=== PATIENT | male | born 1965 | race Caucasian/White ===

== ENCOUNTER 2023-02-16 21:35 | Emergency (ER) | payer BC ==
--- NOTE | 2023-02-16 21:53 | ERPHSYRPT ---
- History of Present Illness Time Seen by Provider: 02/16/23 21:44 Source: patient Exam Limitations: no limitations Physician History: For the past 2 days pt has had swelling of the right lower leg, ankle and foot; today chills and redness of the right lower leg and foot. Pt denies chest pain, shortness of air, abdominal pain, vomiting. Allergies/Adverse Reactions: No Known Drug Allergies Allergy (Unverified 02/16/23 21:56) Home Medications: Allopurinol 300 mg [Zyloprim 300 mg] 1 tab PO DAILY 02/16/23 [History] Gabapentin 600 mg PO TID 02/16/23 [History] Glipizide/Metformin HCl [Glipizide-Metformin 5-500 mg] 1 tab PO BID 02/16/23 [History] Tadalafil [Cialis] 20 mg PO DAILY 02/16/23 [History] - Review of Systems Constitutional: Chills, No Fever Respiratory: No Dyspnea Cardiac: No Chest Pain Abdominal/Gastrointestinal: No Abdominal Pain Musculoskeletal: Joint Swelling (right ankle) Skin: Cellulitis (right lower leg, ankle & foot) Neurological: No Headache - Nursing Vital Signs Nursing Vital Signs: Initial Vital Signs Temperature 99.3 F 02/16/23 21:42 Pulse Rate 95 H 02/16/23 21:42 Respiratory Rate 16 02/16/23 21:42 Blood Pressure 183/109 02/16/23 21:42 O2 Sat by Pulse Oximetry 95 02/16/23 21:42 Pain Scale Pain Intensity 2 - Physical Exam General Appearance: alert Eyes, Ears, Nose, Throat Exam: TMs normal, pharynx normal, moist mucous membranes Neck Exam: normal inspection Cardiovascular/Respiratory Exam: normal breath sounds, heart sounds normal Gastrointestinal/Abdominal Exam: soft (B.S. normal) Hips Exam: bilateral: normal range of motion Legs Exam: right leg: soft tissue tenderness (calf), swelling (right lower leg), other (erythema of right lower leg), bilateral leg: normal range of motion Knees Exam: bilateral knee: normal range of motion Ankle Exam: right ankle: swelling, other (erythema of right ankle), bilateral ankle: normal range of motion Foot Exam: right foot: swelling, other (erythema of right foot), bilateral foot: normal range of motion Neuro/Tendon Exam: normal sensation, normal motor functions Mental Status Exam: alert, cooperative Skin Exam: other (warmth, erythema and edema of right lower leg, ankle & foot) - Radiology Ultrasound Exam Right Venous Lower Extremity Ultrasound: Other (Ultrasound teck report: no DVT of right lower extremity) Ordered Tests: Active Orders 24 hr Category Date Time Status IV Insertion STAT Care 02/16/23 21:53 Active VENOUS UNILAT/LIMITED EXTREMIT [US] Stat Exams 02/16/23 21:51 Taken BMP Stat Lab 02/16/23 22:35 Completed CBC W DIFF Stat Lab 02/16/23 22:35 Completed Medication Summary Generic Name Dose Route Start Last Admin Trade Name Freq PRN Reason Stop Dose Admin Clindamycin HCl 300 mg 02/16/23 22:53 Clindamycin Hcl 150 Mg Capsule PO 02/16/23 22:54 STAT ONE Discontinued Medications Generic Name Dose Route Start Last Admin Trade Name Freq PRN Reason Stop Dose Admin Clindamycin HCl/Dextrose 900 mg in 50 mls @ 100 mls/hr 02/16/23 21:54 02/16/23 22:25 Clindamycin-D5w 900 Mg/50 Ml IV 02/16/23 22:23 100 mls/hr STAT STA 100 mls/hr Administration Clindamycin HCl/Dextrose Confirm 02/16/23 22:17 Clindamycin-D5w 900 Mg/50 Ml Administered 02/16/23 22:18 Dose 900 mg in 50 mls @ ud IV .K-MED ONE Lab/Rad Data: Laboratory Result Diagrams 02/16/23 22:35 02/16/23 22:35 Laboratory Results 02/16/23 02/16/23 Range/Units 22:35 22:35 WBC 8.6 (4.0-10.5) x10^3/uL RBC 5.35 (4.1-5.6) x10^6/uL Hgb 15.4 (12.5-18.0) g/dL Hct 46.5 (42-50) % MCV 86.9 (78-100) fL MCH 28.8 (26-32) pg MCHC 33.1 (32-36) g/dL RDW 12.0 (11.5-14.0) % Plt Count 143 L (150-450) x10^3/uL MPV 10.1 (7.5-11.0) fL Gran % 73.2 H (36.0-66.0) % Immature Gran % (Auto) 0.4 (0.00-0.4) % Nucleat RBC Rel Count 0.0 (0.00-0.1) % Eos # (Auto) 0.02 (0-0.5) x10^3/uL Immature Gran # (Auto) 0.03 (0.00-0.03) x10^3u/L Absolute Lymphs (auto) 1.58 (1.0-4.6) x10^3/uL Absolute Monos (auto) 0.65 (0.0-1.3) x10^3/uL Absolute Nucleated RBC 0.00 (0.00-0.01) x10^3u/L Lymphocytes % 18.4 L (24.0-44.0) % Monocytes % 7.6 (0.0-12.0) % Eosinophils % 0.2 (0.00-5.0) % Basophils % 0.2 (0.0-0.4) % Absolute Granulocytes 6.27 (1.4-6.9) x10^3/uL Basophils # 0.02 (0-0.4) x10^3/uL Sodium 130 L (137-145) mmol/L Potassium 3.9 (3.5-5.1) mmol/L Chloride 92 L (98-107) mmol/L Carbon Dioxide 27 (22-30) mmol/L Anion Gap 14.9 (5-15) MEQ/L BUN 10 (9-20) mg/dL Creatinine 0.70 (0.66-1.25) mg/dL Estimated GFR 108.8 ML/MIN Glucose 320 H (74-106) mg/dL Calcium 9.1 (8.4-10.2) mg/dL - Progress Progress: unchanged Counseled pt/family regarding: lab results, diagnosis Medical Desision Making - Diagnostic Testing Diagnostic test were ordered, analyzed, and reviewed by me: Yes - Departure Departure Disposition: Home Clinical Impression: Cellulitis of right leg, ankle & foot Condition: Stable Critical Care Time: No Referrals: WINDY MARIEE MD [Primary Care Provider] - Follow up/PCP as directed Instructions: Cellulitis (Skin Infection), Adult (DC) Additional Instructions: Elevate right leg 12 inches above heart level for the next 2 days. Follow up with private doctor tomorrow. Forms: Work/School Release Form Prescriptions: clindamycin HCL [Clindamycin HCl] 300 mg PO Q6H #40 cap
[2023-02-16] MEDS ORDERED: CLINDAMYCIN-D5W 900 MG/50 ML*** 900 MG/50 ML BAG IV STA (21:54)
[2023-02-16 21:59] VITALS: TEMP 99.3
[2023-02-16] MEDS ORDERED: CLINDAMYCIN-D5W 900 MG/50 ML*** 900 MG/50 ML BAG IV ONE (22:17)
[2023-02-16 22:40] LABS: Absolute Neutrophil Ct (ANC) 6.27 x10^3/uL (1.4-6.9); BASOPHIL % 0.2 % (0.0-0.4); Basophil (Absolute #) 0.02 x10^3/uL (0-0.4); Eosinophil % 0.2 % (0.00-5.0); Eosinophil (Absolute #) 0.02 x10^3/uL (0-0.5); Hematocrit 46.5 % (42-50); Hemoglobin 15.4 g/dL (12.5-18.0); IMMATURE GRAN # 0.03 x10^3u/L (0.00-0.03); IMMATURE GRAN % 0.4 % (0.00-0.4); Lymphocyte (Absolute #) 1.58 x10^3/uL (1.0-4.6); Lymphocytes % 18.4 % (24.0-44.0); Mean Cell Volume 86.9 fL (78-100); Mean Corpuscular Hemoglobin 28.8 pg (26-32); Mean Corpuscular Hgb Concent. 33.1 g/dL (32-36); Mean Platelet Volume 10.1 fL (7.5-11.0); Monocyte (Absolute #) 0.65 x10^3/uL (0.0-1.3); Monocytes % 7.6 % (0.0-12.0); Neutrophil % 73.2 % (36.0-66.0); Platelet Count 143 x10^3/uL (150-450); Red Blood Count 5.35 x10^6/uL (4.1-5.6); White Blood Count 8.6 x10^3/uL (4.0-10.5)
[2023-02-16] MEDS ORDERED: CLEOCIN 150 MG CAPSULE PO ONE (22:53)
[2023-02-16 22:54] LABS: ANION GAP 14.9 MEQ/L (5-15); Calcium 9.1 mg/dL (8.4-10.2); Creatinine 1 0.7 mg/dL (0.66-1.25); EST GLOMERULAR FILTRATION RATE 108.8 ML/MIN; Potassium 3.9 mmol/L (3.5-5.1)
[2023-02-16] MEDS ORDERED: CLEOCIN 150 MG CAPSULE ONE (22:56)
[2023-02-16 23:02] VITALS: BP 137/89; PULSE 88; RESP 18; O2SAT 97
--- NOTE | 2023-02-17 08:56 | XRAY ---
Indication: Right leg pain and swelling. Two-dimensional sonogram and color Doppler imaging of the major venous vessels of the right leg performed. Comparison: None No thrombus seen in the examined deep venous vessels of the right leg including greater saphenous vein. Veins demonstrate normal compressibility. Venous waveforms are normal with and without augmentation. Right groin demonstrate a few incidental prominent lymph nodes, largest 1 x 2 cm presumed reactive. Impression: Right leg negative for DVT. Incidental prominent right inguinal lymph nodes presumed reactive. Comment: Preliminary report was given.
== END 2023-02-16 23:07 | disposition home or self-care (01) ==
LOC: ED 21:35
DX: L03.115 Cellulitis of right lower limb (principal); Z79.84 Long term (current) use of oral hypoglycemic drugs; Z79.899 Other long term (current) drug therapy
CPT/HCPCS: 36000; 36415; 80048; 85025; 93971; 96365; 99284; A9270-GY